=== PATIENT | female | born 1990 ===

== ENCOUNTER 2020-12-02 16:08 | Emergency (ER) | payer SELFPAY ==
[~2020-12-02] VITALS: Ht 167.6 cm; Wt 117.9 kg
[2020-12-02 19:54] VITALS: BP 123/69
== END 2020-12-02 21:30 | disposition home or self-care (01) ==
LOC: ER 16:08
DX: G43.909 Migraine, unspecified, not intractable, without status migrainosus (principal); E66.9 Obesity, unspecified; Z68.41 Body mass index [BMI] 40.0-44.9, adult
CPT/HCPCS: 70450